=== PATIENT | male | born 1980 | race Caucasian/White ===

== ENCOUNTER 2021-08-26 02:44 | Emergency (ER) | payer BC, OTHER ==
[2021-08-26] MEDS ORDERED: Lidocaine 1% with EPINEPHrine 1:100,000 10 ML MDV INJECT ONE (02:59)
== END 2021-08-26 03:42 | disposition home or self-care (01) ==
LOC: MW.ED 02:44
DX: L02.811 Cutaneous abscess of head [any part, except face] (principal)
CPT/HCPCS: 10060; 99282; 99282-25

== ENCOUNTER 2023-05-10 06:32 | Day surgery (SDC) | payer BC ==
[2023-05-10] MEDS: Lactated Ringers 1,000 ML IV SCH (07:04)
[2023-05-10] MEDS ORDERED: droPERidol 5 MG/2 ML SDV IVPUSH PRN (07:06)
[2023-05-10] MEDS ORDERED: fentaNYL 50 MCG/ML SDV IVPUSH PRN (07:06)
[2023-05-10] MEDS ORDERED: Albuterol 0.083% 2.5 MG/3 ML Neb Soln NEB PRN (07:06)
[2023-05-10] MEDS ORDERED: Metoclopramide 10 MG/2 ML SDV IVPUSH PRN (07:06)
[2023-05-10] MEDS ORDERED: Naloxone 0.4 MG/ML SDV IVPUSH PRN (07:06)
[2023-05-10] MEDS ORDERED: Morphine 2 MG/ML SYRINGE IVPUSH PRN (07:06)
[2023-05-10] MEDS ORDERED: HYDROmorphone 1 MG/ML Syringe IVPUSH PRN (07:06)
[2023-05-10] MEDS ORDERED: Ondansetron 4 MG/2 ML SDV IVPUSH PRN (07:06)
[2023-05-10] MEDS ORDERED: Lidocaine 1% 20 ML MDV ONE (07:17)
[2023-05-10] MEDS ORDERED: Bupivacaine 0.5% 30 ML SDV ONE (07:18)
[2023-05-10] MEDS ORDERED: propofoL 50 ML ONE (07:27)
[2023-05-10] MEDS ORDERED: dexmedeTOMIDine HCl 200 MCG/2 ML SDV ONE (07:27)
[2023-05-10] MEDS ORDERED: Water For Injection, Sterile 20 ML ONE (07:28)
[2023-05-10] MEDS ORDERED: fentaNYL 100 MCG/2 ML SDV ONE ×2 (08:05→08:29)
[2023-05-10] MEDS ORDERED: Ondansetron 4 MG/2 ML SDV ONE (08:06)
[2023-05-10] MEDS ORDERED: Dexamethasone 4 MG/ML 5 ML MDV ONE (08:06)
[2023-05-10] MEDS ORDERED: Ketorolac 30 MG/ML SDV ONE (08:25)
[2023-05-10] MEDS ORDERED: Acetaminophen/HYDROcodone 325-5 MG Tab PO PRN (09:58)
[2023-05-10] MEDS ORDERED: Lactated Ringers 1,000 ML IV SCH (10:00)
== END 2023-05-10 10:32 | disposition home or self-care (01) ==
LOC: MW.SDS 06:32
PROVIDERS: ATTEND Surgery
DX: D17.22 Benign lipomatous neoplasm of skin and subcutaneous tissue of left arm (principal); D17.39 Benign lipomatous neoplasm of skin and subcutaneous tissue of other sites; M79.89 Other specified soft tissue disorders; Z79.899 Other long term (current) drug therapy
CPT/HCPCS: 23071; 27043; J0131; J0665; J1100; J1885; J2405; J2704; J3010; J7120; J3490